=== PATIENT | female | born 1940 | race Caucasian/White ===

== ENCOUNTER 2017-03-24 10:17 | Emergency (ER) | payer OTHER, MEDICAID ==
[~2017-03-24] VITALS: Ht 157.5 cm; Wt 68.5 kg
[~2017-03-24 10:17] MED LIST: AMLO10TA2 PO; GLIP-116 PO; LEVO200I5 IV; MONT10TA34 OR; NAPR-591 PO; SIMV10TA84 PO; SITA50TA14 PO
[2017-03-24 11:14] LABS: Basophils # (auto) 0 uL; Basophils % (auto) 0.3 % (0.0-2.0); CONDITION Y; Eosinophils # (auto) 0.1 uL; Eosinophils % (auto) 0.7 % (0.0-7.0); Hematocrit 37.2 % (36.0-46.0); Hemoglobin 12.7 g/dL (12.2-16.2); Lymphocytes % (auto) 12.7 % (10.0-50.0); Mean Corpuscular Hemoglobin 30.3 pg (28.0-32.0); Mean Corpuscular Hgb Conc. 34.2 g/dL (32.0-36.0); Mean Corpuscular Volume 88.8 fL (80.0-100.0); Mean Platelet Volume 8.1 fL (7.4-10.4); Monocytes # (auto) 1.1 uL; Monocytes % (auto) 13.7 % (0.0-12.0); Neutrophils % (auto) 72.6 % (37.0-80.0); Platelet Count (auto) 320 10^3/uL (140-450); Red Cell Distribution Width 13.4 % (11.6-16.0); White Blood Cell 8.2 10^3/uL (4.4-10.8)
[2017-03-24 11:37] LABS: Albumin 3.7 g/dL (3.4-5.0); BUN/Creatinine Ratio 11.1; Bilirubin, Total 0.3 mg/dL (0.2-1.0); Calcium 9.1 mg/dL (8.5-10.1); Potassium 3.9 mmol/L (3.5-5.1); Total Protein 7.7 g/dL (6.4-8.2)
[2017-03-24] MEDS ORDERED: PANTOPRAZOLE 40 MG/10 ML VIAL IV ONE (12:45)
[2017-03-24] MEDS ORDERED: ONDANSETRON HCL 4 MG/2 ML VIAL IV ONE (12:45)
[2017-03-24] MEDS ORDERED: SODIUM CHLORIDE 0.9% 1,000 ML IV ONE (12:45)
[2017-03-24 13:10] LABS: INR 0.98 (0.9-1.15); Partial Thromboplastin Time 28.5 sec (22.64-33.71); Prothrombin Time 10.7 sec (9.37-12.3)
[2017-03-24 14:43] VITALS: BP 128/69
== END 2017-03-24 14:47 | disposition home or self-care (01) ==
LOC: ER 10:17
DX: K92.2 Gastrointestinal hemorrhage, unspecified (principal); I10 Essential (primary) hypertension; E11.9 Type 2 diabetes mellitus without complications; E78.5 Hyperlipidemia, unspecified; Z88.0 Allergy status to penicillin; Z79.899 Other long term (current) drug therapy; Z88.8 Allergy status to other drugs, medicaments and biological substances
CPT/HCPCS: 36415; 74176; 80053; 82962; 85025; 85610; 85730; 96361; 96374; 96375; 99285; C9113; J2405; J7030

== ENCOUNTER 2018-05-30 11:09 | Inpatient (IN) | payer OTHER, MEDICAID ==
[~2018-05-30] VITALS: Ht 157.5 cm; Wt 70.3 kg
[~2018-05-30 11:09] MED LIST changes: +AMLO10TA12 PO; -AMLO10TA2 PO
[2018-05-30 12:03] LABS: Urine Bacteria NONE SEEN /hpf (None Seen); Urine Blood Negative /uL (Negative); Urine Hyaline Cast FEW /lpf (0 - 2); Urine Mucus FEW (None Seen); Urine Specific Gravity 1.022 (1.001-1.035); Urine WBC 62 /hpf (0 - 5)
[2018-05-30 12:05] LABS: Basophils # (auto) 0.1 uL; Basophils % (auto) 0.6 % (0.0-2.0); Eosinophils # (auto) 0.1 uL; Hematocrit 38.6 % (36.0-46.0); Hemoglobin 12.4 g/dL (12.2-16.2); Lymphocytes # (auto) 1.1 uL; Lymphocytes % (auto) 9.3 % (10.0-50.0); Mean Corpuscular Hemoglobin 28.3 pg (28.0-32.0); Mean Corpuscular Hgb Conc. 32.2 g/dL (32.0-36.0); Mean Corpuscular Volume 88.2 fL (80.0-100.0); Monocytes # (auto) 1.3 uL; Neutrophils % (auto) 78.1 % (37.0-80.0); Platelet Count (auto) 344 10^3/uL (140-450); Red Blood Cells 4.38 10^6/uL (4.0-5.20); Red Cell Distribution Width 13.9 % (11.8-14.3); White Blood Cell 11.5 10^3/uL (4.4-10.8)
[2018-05-30 12:25] LABS: Albumin 3.6 g/dL (3.4-5.0); BUN/Creatinine Ratio 11.7; Calcium 8.8 mg/dL (8.5-10.1); Potassium 4.1 mmol/L (3.5-5.1)
[2018-05-30 12:30] LABS: Bilirubin, Total 0.4 mg/dL (0.2-1.0); Total Protein 7.7 g/dL (6.4-8.2)
[2018-05-30] MEDS ORDERED: HEPARIN 1,000 UNITS/ml 1ML VIAL IV ONE (12:45)
[2018-05-30] MEDS ORDERED: HEPARIN IN NS 1000U/500ML (2UNIT/ML) 500 ML BAG/KIT IV ONE (12:45)
[2018-05-30] MEDS ORDERED: PIPERACILLIN-TAZOB 3.375GM 100 ML IV ONE (13:15)
[2018-05-30] MEDS ORDERED: ENOXAPARIN SOD 100 MG/1 ML SYRINGE SC ONE (13:30)
[2018-05-30] MEDS ORDERED: FUROSEMIDE 40 MG/4 ML VIAL IV ONE (13:30)
[2018-05-30] MEDS ORDERED: DEXTROSE (50%) 50ML SYRG IV PRN (15:00)
[2018-05-30] MEDS ORDERED: NITROGLYCERIN 0.4 MG SL TAB SL PRN (15:00)
[2018-05-30] MEDS ORDERED: MORPHINE SULFATE 4 MG/ML SYR/VIAL IV PRN (15:00)
[2018-05-30] MEDS ORDERED: POTASSIUM CHL 20 Meq TABLET PO ONE (15:00)
[2018-05-30] MEDS: cefTRIAXone 1GM/50ML D5W 50 ML IV SCH (16:30)
[2018-05-30] MEDS: InsuLIN REG 1unit/0.01ml Soln (100units/ml) SC SCH (18:00)
[2018-05-30] MEDS: ACCU-CHEK COMFORT CURVE STRIP VI SCH (18:13)
[2018-05-30] MEDS: ATORVASTATIN 20 MG TAB PO SCH (22:27)
[2018-05-31] MEDS: InsuLIN REG 1unit/0.01ml Soln (100units/ml) SC SCH ×5 (00:39→22:00)
[2018-05-31] MEDS: ACCU-CHEK COMFORT CURVE STRIP VI SCH ×5 (00:39→22:14)
[2018-05-31 06:20] LABS: Basophils # (auto) 0 uL; Basophils % (auto) 0.4 % (0.0-2.0); Eosinophils # (auto) 0.2 uL; Eosinophils % (auto) 2.3 % (0.0-7.0); Hematocrit 37.5 % (36.0-46.0); Hemoglobin 12.7 g/dL (12.2-16.2); Lymphocytes # (auto) 0.9 uL; Lymphocytes % (auto) 12.4 % (10.0-50.0); Mean Corpuscular Hemoglobin 29.6 pg (28.0-32.0); Mean Corpuscular Hgb Conc. 33.8 g/dL (32.0-36.0); Mean Corpuscular Volume 87.7 fL (80.0-100.0); Monocytes # (auto) 1.1 uL; Monocytes % (auto) 15.4 % (0.0-12.0); Neutrophils # (auto) 4.9 uL; Neutrophils % (auto) 69.5 % (37.0-80.0); Platelet Count (auto) 325 10^3/uL (140-450); Red Blood Cells 4.27 10^6/uL (4.0-5.20)
[2018-05-31 06:28] LABS: INR 1.03 (0.9-1.15); Partial Thromboplastin Time 29.3 sec (23.78-33.04)
[2018-05-31 06:33] LABS: BUN/Creatinine Ratio 11.4; Magnesium 1.9 mg/dL (1.6-2.6); Potassium 3.8 mmol/L (3.5-5.1)
[2018-05-31] MEDS ORDERED: ASPirin 325 MG TAB PO ONE ×2 (08:00→08:45)
[2018-05-31] MEDS: cefTRIAXone 1GM/50ML D5W 50 ML IV SCH (08:53)
[2018-05-31] MEDS: ASPirin 81 mg TAB PO SCH (09:25)
[2018-05-31] MEDS: FUROSEMIDE 40 MG/4 ML VIAL IV SCH (09:43)
[2018-05-31] MEDS: POTASSIUM CHL 20 Meq TABLET PO SCH (09:48)
[2018-05-31] MEDS ORDERED: LIDOCAINE 2%HCL (LOCAL ANESTH.) INJ 10ml MDV ONE (12:49)
[2018-05-31] MEDS ORDERED: IODIXANOL 320MG/ML 100ML BTL IV ONE (12:49)
[2018-05-31] MEDS ORDERED: ASPirin 325 MG TAB ONE (14:43)
[2018-05-31] MEDS ORDERED: TICAGRELOR 90 MG TAB ONE (14:43)
[2018-05-31] MEDS ORDERED: EPTIFIBATIDE INJ (2MG/ML) 10ML VIAL IV ONE (14:44)
[2018-05-31] MEDS ORDERED: fentaNYL CITRATE 100 MCG/2 ML VL ONE (14:53)
[2018-05-31] MEDS ORDERED: ANGIOMAX 250 MG VIAL IV ONE (14:53)
[2018-05-31] MEDS ORDERED: MIDAZOLAM HCL 1MG/1ML-2 ML VIAL ONE (14:54)
[2018-05-31] MEDS ORDERED: SODIUM CHL 0.9% 50 ML ONE (14:54)
[2018-05-31] MEDS ORDERED: VERAPAMIL 2.5MG/ML INJ 2ML VIAL IV ONE (14:56)
[2018-05-31] MEDS ORDERED: ACETAMINOPHEN 500 MG TAB PO PRN (15:15)
[2018-05-31] MEDS ORDERED: DEXTROSE (50%) 50ML SYRG IV PRN (17:00)
[2018-05-31] MEDS ORDERED: ALBUTEROL SULF 2.5 MG/0.5ML(0.5%) NEB SOLN NEB PRN (18:45)
[2018-05-31 19:20] VITALS: BP 134/72
[2018-05-31] MEDS: IPRATROPIUM BROM 0.5 MG/2.5ML INH SOL NEB PRN (19:22)
[2018-05-31 20:30] VITALS: BP 116/72
[2018-05-31] MEDS ORDERED: ATORVASTATIN 20 MG TAB PO SCH (22:00)
[2018-05-31] MEDS: ATORVASTATIN 20 MG TAB PO SCH (22:10)
[2018-05-31] MEDS: CARVEDILOL 3.125 MG TAB PO SCH (22:11)
[2018-05-31] MEDS ORDERED: CLOPIDOGREL BISULFATE 75 MG TAB PO ONE (23:00)
[2018-06-01 05:00] VITALS: BP 97/53
[2018-06-01] MEDS: InsuLIN REG 1unit/0.01ml Soln (100units/ml) SC SCH ×3 (06:11→18:18)
[2018-06-01] MEDS: ACCU-CHEK COMFORT CURVE STRIP VI SCH ×3 (06:11→18:17)
[2018-06-01 08:00] VITALS: BP 118/56
[2018-06-01] MEDS ORDERED: PNEUMOCOCCAL VACC POLYS 25 MCG/0.5 ML VIAL IM ONE (08:00)
[2018-06-01] MEDS: ASPirin 81 mg TAB PO SCH (09:59)
[2018-06-01] MEDS: POTASSIUM CHL 20 Meq TABLET PO SCH (09:59)
[2018-06-01] MEDS: cefTRIAXone 1GM/50ML D5W 50 ML IV SCH (09:59)
[2018-06-01] MEDS: CARVEDILOL 3.125 MG TAB PO SCH (10:00)
[2018-06-01] MEDS ORDERED: CLOPIDOGREL BISULFATE 75 MG TAB PO SCH (10:00)
[2018-06-01] MEDS: FUROSEMIDE 40 MG/4 ML VIAL IV SCH (10:00)
[2018-06-01 12:00] VITALS: BP 100/56
[2018-06-01 16:00] VITALS: BP 109/59
[2018-06-01] MEDS ORDERED: CAR3125T PO (17:41)
[2018-06-01] MEDS ORDERED: SPIR25TA88 PO (17:41)
[2018-06-01] MEDS ORDERED: ASPI81CH43 PO (17:41)
[2018-06-01] MEDS ORDERED: POTA20TA53 PO (17:41)
[2018-06-01] MEDS ORDERED: SACU1TAB PO (17:41)
[2018-06-01] MEDS ORDERED: CLOP75TA28 PO (17:41)
[2018-06-01] MEDS ORDERED: ATOR20TA50 PO (17:41)
[2018-06-01] MEDS ORDERED: FURO40TA PO (17:41)
[2018-06-01] MEDS ORDERED: SPIRONOLACTONE 25 MG TAB PO SCH (18:00)
[2018-06-01 18:16] VITALS: BP 109/59
[2018-06-01] MEDS: IPRATROPIUM BROM 0.5 MG/2.5ML INH SOL NEB PRN (19:16)
[2018-06-01] MEDS ORDERED: SACUBITRIL-VALSARTAN 24mg/26mg TAB PO SCH (22:00)
== END 2018-06-01 19:37 | disposition home health service (06) | DRG 246 ==
LOC: ER 11:09 → OVERFLOW 14:57 → TELE-CENTR 05-31 19:23
PROVIDERS: ADMIT Internal Medicine; ATTEND Internal Medicine
PROC: 027034Z Dilation of Coronary Artery, One Artery with Drug-eluting Intraluminal Device, Percutaneous Approach (ICD-10-PCS; principal; 2018-05-31)
PROC: 4A023N7 Measurement of Cardiac Sampling and Pressure, Left Heart, Percutaneous Approach (ICD-10-PCS; 2018-05-31)
PROC: B2111ZZ Fluoroscopy of Multiple Coronary Arteries using Low Osmolar Contrast (ICD-10-PCS; 2018-05-31)
PROC: 3E073PZ Introduction of Platelet Inhibitor into Coronary Artery, Percutaneous Approach (ICD-10-PCS; 2018-05-31)
DX: I21.4 Non-ST elevation (NSTEMI) myocardial infarction (principal); I50.43 Acute on chronic combined systolic (congestive) and diastolic (congestive) heart failure; N39.0 Urinary tract infection, site not specified; I42.9 Cardiomyopathy, unspecified; J45.909 Unspecified asthma, uncomplicated; E78.5 Hyperlipidemia, unspecified; E66.9 Obesity, unspecified; I11.0 Hypertensive heart disease with heart failure; E11.9 Type 2 diabetes mellitus without complications; Z23 Encounter for immunization; Z95.5 Presence of coronary angioplasty implant and graft; Z88.0 Allergy status to penicillin; Z68.28 Body mass index [BMI] 28.0-28.9, adult
CPT/HCPCS: 36415; 71046; 80048; 80053; 81001; 82962; 83036; 83735; 83880; 84443; 84484; 85025; 85610; 85730; 87086; 92928; 93005; 93306; 93458; 94640; 99152; A6257; C1874; G0378; J0696; J1815; J2001; J2250; J2543; Q9967

== ENCOUNTER → 2019-03-04 08:57 | Emergency (ER) | payer OTHER, MEDICAID ==
[~2019-03-04] VITALS: Ht 30.5 cm; Wt 68.0 kg
[~2019-03-04 08:57] MED LIST changes: -AMLO10TA12 PO; +ASPI81CH43 PO; +ATOR20TA50 PO; +CAR3125T PO; +CLOP75TA28 PO; +FURO1TAB31 PO; -GLIP-116 PO; +GLIP10TA9 PO; +MECLIZINE HCL 25 MG TAB PO ONE; -NAPR-591 PO; +POTA-220 PO; +SACU1TAB PO; -SIMV10TA84 PO; -SITA50TA14 PO; +SPIR25TA88 PO
[2019-03-04 09:46] LABS: Basophils # (auto) 0 uL; Basophils % (auto) 0.5 % (0.0-2.0); Eosinophils # (auto) 0.1 uL; Eosinophils % (auto) 1.4 % (0.0-7.0); Hematocrit 37.4 % (36.0-46.0); Hemoglobin 12.5 g/dL (12.2-16.2); Lymphocytes # (auto) 0.7 uL; Lymphocytes % (auto) 10.7 % (10.0-50.0); Mean Corpuscular Hemoglobin 29.6 pg (28.0-32.0); Mean Corpuscular Hgb Conc. 33.4 g/dL (32.0-36.0); Mean Corpuscular Volume 88.6 fL (80.0-100.0); Monocytes # (auto) 0.6 uL; Monocytes % (auto) 8.2 % (0.0-12.0); Neutrophils # (auto) 5.4 uL; Neutrophils % (auto) 79.2 % (37.0-80.0); Nucleated Red Blood Cells % 0.2 %; Platelet Count (auto) 256 10^3/uL (140-450); Red Blood Cells 4.23 10^6/uL (4.0-5.20); Red Cell Distribution Width 13.8 % (11.8-14.3); White Blood Cell 6.8 10^3/uL (4.4-10.8)
[2019-03-04 10:04] LABS: Alanine Aminotransferase 26 U/L (13-56); Albumin 3.9 g/dL (3.4-5.0); Anion Gap 10 (5-15); Aspartate Aminotransferase 17 U/L (15-37); BUN/Creatinine Ratio 12.3; Blood Urea Nitrogen 8 mg/dL (7-18); Calcium 8.7 mg/dL (8.5-10.1); Carbon Dioxide 26 mmol/L (21-32); Chloride 95 mmol/L (98-107); GFR African American 114 mL/min; GFR Non-African American 94 mL/min; Glucose 183 mg/dL (74-106); Potassium 3.7 mmol/L (3.5-5.1); Sodium 131 mmol/L (136-145)
[2019-03-04 10:08] LABS: Alkaline Phosphatase 61 U/L (45-117); Bilirubin, Total 0.5 mg/dL (0.2-1.0); Total Protein 7.6 g/dL (6.4-8.2)
[2019-03-04 13:12] VITALS: BP 112/47
[2019-03-04 13:29] LABS: Urine Bacteria FEW /hpf (None Seen); Urine Blood Negative /uL (Negative); Urine WBC 12 /hpf (0 - 5)
== END | disposition home or self-care (01) ==
LOC: EDUNIT# 08:47 → EDBD 08:57 → ER 08:57
DX: R42 Dizziness and giddiness (principal); N39.0 Urinary tract infection, site not specified; R19.7 Diarrhea, unspecified; J45.909 Unspecified asthma, uncomplicated; E11.9 Type 2 diabetes mellitus without complications; E78.00 Pure hypercholesterolemia, unspecified; I10 Essential (primary) hypertension; Z88.0 Allergy status to penicillin; Z79.82 Long term (current) use of aspirin; Z79.899 Other long term (current) drug therapy
CPT/HCPCS: 36415; 70450; 80053; 81001; 84484; 85025; 93005; 99284; J8597

== ENCOUNTER 2019-10-06 07:45 | Emergency (ER) | payer OTHER, MEDICAID ==
[~2019-10-06] VITALS: Ht 154.9 cm; Wt 65.8 kg
[~2019-10-06 07:45] MED LIST changes: -MECLIZINE HCL 25 MG TAB PO ONE
[2019-10-06 07:51] VITALS: BP 169/73
[2019-10-06] MEDS ORDERED: ACETAMINOPHEN 325 MG TAB PO ONE (08:45)
== END 2019-10-06 09:02 | disposition home or self-care (01) ==
LOC: ER 07:47
DX: S92.355A Nondisplaced fracture of fifth metatarsal bone, left foot, initial encounter for closed fracture (principal); J45.909 Unspecified asthma, uncomplicated; E11.9 Type 2 diabetes mellitus without complications; I10 Essential (primary) hypertension; E78.5 Hyperlipidemia, unspecified; Z88.0 Allergy status to penicillin; Z79.82 Long term (current) use of aspirin; Z79.899 Other long term (current) drug therapy; W01.0XXA Fall on same level from slipping, tripping and stumbling without subsequent striking against object, initial encounter; Y93.89 Activity, other specified; Y92.89 Other specified places as the place of occurrence of the external cause; Y99.8 Other external cause status
CPT/HCPCS: 29515; 73630

== ENCOUNTER 2021-07-16 14:42 | Emergency (ER) | payer OTHER, MEDICAID ==
[~2021-07-16] VITALS: Ht 157.5 cm; Wt 63.5 kg
[~2021-07-16 14:42] MED LIST changes: +MONT-8 OR; -MONT10TA34 OR; +SPIR25TA PO; -SPIR25TA88 PO
[2021-07-16] MEDS ORDERED: ACETAMINOPHEN 500 MG TAB PO ONE (18:15)
[2021-07-16 18:30] VITALS: BP 104/62
== END 2021-07-16 18:40 | disposition home or self-care (01) ==
LOC: ER 14:42
DX: J01.90 Acute sinusitis, unspecified (principal); R51.9 Headache, unspecified; I10 Essential (primary) hypertension; E11.9 Type 2 diabetes mellitus without complications; E78.5 Hyperlipidemia, unspecified; E03.9 Hypothyroidism, unspecified; J45.909 Unspecified asthma, uncomplicated; Z20.822 Contact with and (suspected) exposure to COVID-19
CPT/HCPCS: 36415; 70450; 71046; 87426; 93005